=== PATIENT | female | born 1950 | race Caucasian/White ===

== ENCOUNTER 2017-01-05 14:07 | Emergency (ER) | payer MEDICARE, BC ==
[2017-01-05] MEDS ORDERED: Sodium Chloride 0.9% 2.5 ML Syringe FLUSH PRN (14:26)
[2017-01-05] MEDS ORDERED: Sodium Chloride 0.9% 10 ML Syringe FLUSH PRN (14:26)
[2017-01-05] MEDS: Nitroglycerin 0.4 MG Tab.SL SL PRN ×3 (14:52→15:04)
--- NOTE | 2017-01-05 15:06 | EDM.PDOC ---
ED HISTORY OF PRESENT ILLNESS - General Chief Complaint: Chest Pain Stated Complaint: CHEST PAIN Time Seen by Provider: 01/05/17 14:14 Source of Information: Reports: Patient History Limitations: Reports: No limitations - History of Present Illness INITIAL COMMENTS - FREE TEXT/NARRATIVE: History of present illness: [] Patient history of cardiac stent being placed in 2014 began having chest pain yesterday at 10:30 PM. She has had intermittent chest pain however this pain has been continuous since it began. She denies any shortness of breath, fevers, chills, sweating, dizziness or cough. She states that the pain is localized to a specific area over her left breast that is nonradiating. The pain is reproduced and worsens when she palpates this area. Patient took an aspirin last night. Review of systems: As per history of present illness and below otherwise all systems reviewed and negative. Past medical history: As per history of present illness and as reviewed below otherwise noncontributory. Surgical history: As per history of present illness and as reviewed below otherwise noncontributory. Social history: No reported history of drug or alcohol abuse. Family history: As per history of present illness and as reviewed below otherwise noncontributory. Physical exam: General: Well developed, well nourished in NAD HEENT: Atraumatic, normocephalic, pupils reactive, negative for conjunctival pallor or scleral icterus, mucous membranes moist, throat clear, neck supple, nontender, trachea midline. Lungs: Clear to auscultation, breath sounds equal bilaterally, chest tender to palpation over the left breast with reproduction of pain. Heart: S1S2, regular, negative for clicks, rubs, or JVD. Abdomen: Soft, nondistended, nontender. Negative for masses or hepatosplenomegaly. Negative for costovertebral tenderness. Pelvis: Stable nontender. Genitourinary: Deferred. Rectal: Deferred. Extremities: Atraumatic, negative for cords or calf pain. Neurovascular unremarkable. Neuro: Awake, alert, oriented. Cranial nerves II through XII unremarkable. Cerebellum unremarkable. Motor and sensory unremarkable throughout. Exam nonfocal. Diagnostics: [] Lab and x-rays were done were negative Therapeutics: [] Impression: [] Chest wall pain Plan: [] Followup PMD, Motrin for pain Definitive disposition and diagnosis as appropriate pending reevaluation and review of above. - Related Data Allergies/ADRs: Allergies Allergy/AdvReac Type Severity Reaction Status Date / Time No Known Allergies Allergy Verified 01/05/17 14:15 Home Meds: Home Meds ALPRAZolam [Alprazolam] 0.25 mg pe PO DAILY 01/05/17 [History] Aspirin [Adult Low Dose Aspirin EC] 81 mg PO DAILY 01/05/17 [History] Hydroxychloroquine [Plaquenil] 200 mg PO DAILY 01/05/17 [History] Lisinopril [Prinivil] 20 mg PO DAILY 01/05/17 [History] Metoprolol Succinate [Toprol XL 50mg] 50 mg PO DAILY 01/05/17 [History] Omeprazole 20 mg PO ASDIRECTED 01/05/17 [History] atorvaSTATin [Lipitor] 20 mg PO BEDTIME 01/05/17 [History] Past Medical History Cardiovascular History: Reports: CAD - Past Surgical History Cardiovascular Surgical History: Reports: Coronary artery stent Female Surgical History: Reports: Hysterectomy Social & Family History - Family History Family Medical History: Noncontributory - Tobacco Use Smoking Status *Q: Never Smoker - Recreational Drug Use Recreational Drug Use: No ED ROS GENERAL - Review of Systems Review Of Systems: See Below (See history of present illness) ED EXAM, GENERAL - Physical Exam Exam: See Below (See history of present illness) Course - Vital Signs Last Recorded V/S: Last Vital Signs Temp 36.6 C 01/05/17 14:15 Pulse 91 01/05/17 14:15 Resp 20 01/05/17 14:15 BP 146/72 H 01/05/17 14:52 Pulse Ox 97 01/05/17 14:15 - Orders/Labs/Meds Orders: Active Orders 24 hr Category Date Time Status EKG Documentation Completion [RC] STAT Care 01/05/17 14:37 Active Sodium Chloride 0.9% [Saline Flush] Med 01/05/17 14:26 Active 10 ml FLUSH ASDIRECTED PRN Sodium Chloride 0.9% [Saline Flush] Med 01/05/17 14:26 Active 2.5 ml FLUSH ASDIRECTED PRN Peripheral IV Insertion Adult [OM.PC] Stat Oth 01/05/17 14:26 Ordered Medication Orders Sodium Chloride (Saline Flush) 10 ml FLUSH ASDIRECTED PRN PRN Reason: Keep Vein Open Sodium Chloride (Saline Flush) 2.5 ml FLUSH ASDIRECTED PRN PRN Reason: Keep Vein Open Labs: Laboratory Tests 01/05/17 01/05/17 01/05/17 Range/Units 14:32 14:32 14:32 WBC 6.07 (4.0-11.0) K/uL RBC 4.31 (4.30-5.90) M/uL Hgb 13.6 (12.0-16.0) g/dL Hct 41.2 (36.0-46.0) % MCV 95.6 (80.0-98.0) fL MCH 31.6 (27.0-32.0) pg MCHC 33.0 (31.0-37.0) g/dL RDW Std Deviation 43.5 (28.0-62.0) fl RDW Coeff of Priscilla 13 (11.0-15.0) % Plt Count 274 (150-400) K/uL MPV 9.10 (7.40-12.00) fL Neut % (Auto) 61.3 (48.0-80.0) % Lymph % (Auto) 28.3 (16.0-40.0) % Burnet % (Auto) 8.1 (0.0-15.0) % Eos % (Auto) 1.5 (0.0-7.0) % Baso % (Auto) 0.8 (0.0-1.5) % Neut # 3.7 (1.4-5.7) K/uL Lymph # 1.7 (0.6-2.4) K/uL Burnet # 0.5 (0.0-0.8) K/uL Eos # 0.1 (0.0-0.7) K/uL Baso # 0.1 (0.0-0.1) K/uL Nucleated RBC % 0.0 /100WBC Nucleated RBCs # 0 K/uL Sodium 140 (136-146) mmol/L Potassium 4.1 (3.5-5.1) mmol/L Chloride 105 (98-110) mmol/L Carbon Dioxide 26 (21-31) mmol/L BUN 12 (6.0-23.0) mg/dL Creatinine 0.9 (0.6-1.5) mg/dL Est Cr Clr Drug Dosing 53.83 mL/min Estimated GFR (MDRD) > 60.0 ml/min Glucose 159 H (60-110) mg/dL Calcium 9.1 (8.8-10.8) mg/dL Total Bilirubin 0.4 (0.1-1.5) mg/dL AST 17 (5-40) IU/L ALT 21 (8-54) IU/L Alkaline Phosphatase 106 (40-150) Troponin I < 0.10 (0.0-0.29) NG/ML Total Protein 6.9 (6.0-8.0) g/dL Albumin 3.8 (3.4-4.8) g/dL Globulin 3.1 (2.0-3.5) g/dL Albumin/Globulin Ratio 1.2 L (1.3-2.8) Meds: Medications Generic Name Dose Route Start Last Admin Trade Name Freq PRN Reason Stop Dose Admin Sodium Chloride 10 ml 01/05/17 14:26 Saline Flush FLUSH ASDIRECTED PRN Keep Vein Open Sodium Chloride 2.5 ml 01/05/17 14:26 Saline Flush FLUSH ASDIRECTED PRN Keep Vein Open Discontinued Medications Generic Name Dose Route Start Last Admin Trade Name Freq PRN Reason Stop Dose Admin Ketorolac Tromethamine 30 mg 01/05/17 15:08 01/05/17 15:19 Toradol IVPUSH 01/05/17 15:09 30 mg ONETIME ONE Administration Nitroglycerin 0.4 mg 01/05/17 14:27 01/05/17 14:52 Nitrostat SL 01/05/17 14:38 0.4 mg Q5M PRN Administration Chest Pain Departure - Departure Time of Disposition: 15:42 Disposition: Home, Self-Care 01 Condition: good Clinical Impression: Chest wall pain Forms: ED Department Discharge Additional Instructions: The following information is given to patients seen in the emergency department who are being discharged to home. This information is to outline your options for follow-up care. We provide all patients seen in our emergency department with a follow-up referral. The need for follow-up, as well as the timing and circumstances, are variable depending upon the specifics of your emergency department visit. If you don't have a primary care physician on staff, we will provide you with a referral. We always advise you to contact your personal physician following an emergency department visit to inform them of the circumstance of the visit and for follow-up with them and/or the need for any referrals to a consulting specialist. The emergency department will also refer you to a specialist when appropriate. This referral assures that you have the opportunity for follow-up care with a specialist. All of these measure are taken in an effort to provide you with optimal care, which includes your follow-up. Under all circumstances we always encourage you to contact your private physician who remains a resource for coordinating your care. When calling for follow-up care, please make the office aware that this follow-up is from your recent emergency room visit. If for any reason you are refused follow-up, please contact the [facility] Emergency Department at and asked to speak to the emergency department charge nurse. [facility] [address] [place] [id number] - My Orders Last 24 Hours: My Active Orders 01/05/17 14:26 Sodium Chloride 0.9% [Saline Flush] 10 ml FLUSH ASDIRECTED PRN Sodium Chloride 0.9% [Saline Flush] 2.5 ml FLUSH ASDIRECTED PRN Peripheral IV Insertion Adult [OM.PC] Stat 01/05/17 14:37 EKG Documentation Completion [RC] STAT - Assessment/Plan Last 24 Hours: My Active Orders 01/05/17 14:26 Sodium Chloride 0.9% [Saline Flush] 10 ml FLUSH ASDIRECTED PRN Sodium Chloride 0.9% [Saline Flush] 2.5 ml FLUSH ASDIRECTED PRN Peripheral IV Insertion Adult [OM.PC] Stat 01/05/17 14:37 EKG Documentation Completion [RC] STAT
[2017-01-05] MEDS ORDERED: Ketorolac 30 MG/ML SDV IVPUSH ONE (15:08)
[2017-01-05 15:13] LABS: CHLORIDE,CL 105 mmol/L (98-110); SODIUM,NA 140 mmol/L (136-146)
--- NOTE | 2017-01-05 15:29 | CR ---
EXAMINATION: Portable chest radiograph. HISTORY: Shortness of breath. FINDINGS: The trachea is midline. The cardiomediastinal silhouette is within normal limits. No pulmonary infil trates, effusions or pneumothorax. 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 IMPRESSION: No acute cardiopulmonary process.
[2017-01-05 16:17] VITALS: BP 104/58
== END 2017-01-05 15:55 | disposition home or self-care (01) ==
LOC: MW.ED 14:07
DX: R07.89 Other chest pain (principal); I25.10 Atherosclerotic heart disease of native coronary artery without angina pectoris; Z90.710 Acquired absence of both cervix and uterus; Z79.82 Long term (current) use of aspirin; Z79.899 Other long term (current) drug therapy; Z95.5 Presence of coronary angioplasty implant and graft
CPT/HCPCS: 36415; 71010; 80053; 84484; 85025; 93005; 96374; 99285; A9270; J1885; 99284